=== PATIENT | female | born 1960 | race Caucasian/White ===

== ENCOUNTER 2020-06-12 06:19 | Day surgery (SDC) | payer BC, SELFPAY ==
[~2020-06-12] VITALS: Ht 154.9 cm; Wt 59.0 kg
[2020-06-12] MEDS ORDERED: MEPERIDINE HCL/PF 25 MG/ML DISP.SYRIN IVP PRN (08:30)
[2020-06-12] MEDS ORDERED: MIDAZOLAM HCL 2 MG/2 ML VIAL (VERSED) IVP PRN (08:30)
[2020-06-12] MEDS ORDERED: LABETALOL 100 MG/ 20ML VIAL IVP PRN (08:30)
[2020-06-12] MEDS ORDERED: ONDANSETRON HCL 4 MG/2 ML VIAL IVP PRN (08:30)
[2020-06-12] MEDS ORDERED: hydrALAZINE HCL 20 MG/ML VIAL IVP PRN (08:30)
[2020-06-12] MEDS ORDERED: METOCLOPRAMIDE HCL 10 MG/2 ML VIAL IVP PRN (08:30)
[2020-06-12] MEDS ORDERED: HYDROmorphone 1 MG INJ. 1 MG/ML CARTRIDGE IVP PRN (08:30)
[2020-06-12] MEDS ORDERED: LR 1,000 ML IV SCH (08:30)
[2020-06-12] MEDS ORDERED: HYDROmorphone 1 MG INJ. 1 MG/ML CARTRIDGE ONE (09:49)
[2020-06-12] MEDS: HYDROmorphone 1 MG INJ. 1 MG/ML CARTRIDGE IVP PRN ×2 (09:51→09:58)
[2020-06-12] MEDS ORDERED: LABETALOL 100 MG/ 20ML VIAL ONE (10:18)
[2020-06-12 10:35] VITALS: BP_SYST 158
[2020-06-12] MEDS ORDERED: ONDANSETRON HCL 4 MG/2 ML VIAL ONE (11:14)
== END 2020-06-12 12:00 | disposition home or self-care (01) ==
LOC: SDS 06:19
PROVIDERS: ATTEND Otolaryngology
DX: J34.89 Other specified disorders of nose and nasal sinuses (principal); J34.2 Deviated nasal septum; J32.9 Chronic sinusitis, unspecified; J45.909 Unspecified asthma, uncomplicated; D38.5 Neoplasm of uncertain behavior of other respiratory organs; G47.9 Sleep disorder, unspecified; K21.9 Gastro-esophageal reflux disease without esophagitis; N95.1 Menopausal and female climacteric states; Z79.899 Other long term (current) drug therapy; Z20.828 Contact with and (suspected) exposure to other viral communicable diseases
CPT/HCPCS: 30140; 30520; 31240; 88305; 88311; J1170; J2405; J3490; J7120; U0003

== ENCOUNTER 2020-07-24 17:41 | Emergency (ER) | payer BC, SELFPAY ==
[~2020-07-24] VITALS: Ht 154.9 cm; Wt 59.0 kg
[2020-07-24 18:00] VITALS: BP_SYST 168
[2020-07-24] MEDS ORDERED: KETOROLAC TROMETHAMINE 30 MG VIAL IVP ONE (19:15)
[2020-07-24] MEDS ORDERED: METOCLOPRAMIDE HCL 10 MG/2 ML VIAL IVP ONE (19:15)
[2020-07-24] MEDS ORDERED: DIPHENHYDRAMINE INJ 50 MG/ML VIAL IVP ONE (19:30)
[2020-07-24] MEDS ORDERED: predniSONE 20 MG TABLET PO ONE (20:00)
[2020-07-24] MEDS ORDERED: HYDR-3917 PO (20:25)
[2020-07-24] MEDS ORDERED: PRED20TA PO (20:25)
[2020-07-24] MEDS ORDERED: LORA10TA7 PO (20:25)
[2020-07-24 20:57] VITALS: BP_SYST 143
== END 2020-07-24 20:57 | disposition home or self-care (01) ==
LOC: SED 17:41
DX: G43.909 Migraine, unspecified, not intractable, without status migrainosus (principal); J32.9 Chronic sinusitis, unspecified; Z79.899 Other long term (current) drug therapy
CPT/HCPCS: 96374; 96375; 99284; J1200; J1885; J2765; J7512